=== PATIENT | male | born 1950 | race Caucasian/White ===

== ENCOUNTER → 2017-09-18 09:47 | Outpatient (CLI) | payer MEDICARE, OTHER, SELFPAY ==
--- NOTE | 2017-09-18 13:37 | NEURO ---
NCS and/or EMG Patient Report Ordering Doctor: Sb Cooley DATE OF SERVICE: 09/18/17 Julio Soto is a 66-year-old male presents for electrodiagnostic testing of the left upper limb. He has numbness tingling and weakness in the left hand. He reports neck pain. Electrodiagnostic findings: Left median motor nerve demonstrates prolonged distal latency with normal amplitude and conduction velocity. Prolonged left ulnar motor and sensory latencies. Mildly prolonged median and ulnar F wave. Prolonged left median sensory latency is noted. On needle EMG, all muscles tested in the left upper limb show no evidence of denervation with normal motor unit action potentials. Electrodiagnostic impression: This is an abnormal study in the left upper limb 1. Findings demonstrate left-sided median mononeuropathy. This is consistent with a mild left carpal tunnel syndrome 2. Findings consistent with a mild left ulnar neuropathy. No evidence of axonal loss. No significant drop in conduction velocity across the elbow is noted. No definitive electrodiagnostic evidence for cubital tunnel syndrome. 3. No EMG evidence for cervical radiculopathy If there are any further questions, please do not hesitate to contact me.
== END ==
PROVIDERS: Family Provider Physician Assistant; PCP Physician Assistant; Visit Provider Orthopaedic Surgery
DX: R20.2 Paresthesia of skin (principal); M25.512 Pain in left shoulder; M54.2 Cervicalgia
CPT/HCPCS: 95886; 95909